=== PATIENT | male | born 1970 | race Caucasian/White ===

== ENCOUNTER 2016-12-08 10:40 | Emergency (ER) | payer OTHER ==
[2016-12-08 10:51] VITALS: RESP 18
--- NOTE | 2016-12-08 11:38 | EDPHY ---
H & P Smoking Status: Never smoked <Charito Regalado - Last Filed: 12/08/16 17:29> <LenoraSybil Vanessa - Last Filed: 12/10/16 17:22> Time Seen by Provider: 12/08/16 11:25 HPI/ROS: HPI: 46-year-old male presents to emergency department with chief concern right 2nd finger injury with a table saw that occurred 2 hours prior to arrival. Up-to-date with tetanus. Reports severe 9/10 pain at distal portion of the right finger. No weakness, numbness, tingling. Reports preserved range of motion. Immunocompetent. Has chronic back pain. Happened while at work-he works for himself. Right-hand dominant Review of Systems: Constitutional: no fever, chills, fatigue Cardiac: No cool, dusky extremity GI: No nausea or vomiting Musculoskeletal: No weakness or decreased range of motion Skin: Laceration distal right 2nd finger Neuro: no numbness, tingling, or weakness. no decreased sensation. 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 No acute distress. Head: Normalocephalic. Atraumatic. EENT: PERRLA. EOMI. Neck: Supple, nontender. Respiratory: Breathing unlabored. CV: Chest nontender, atraumatic. Bilateral radial pulses 2+. Brisk cap refill all extremities. GI: Deferred Neuro: Alert. Oriented x 3. Sensation intact all extremities. Skin: Skin warm, 2 cm laceration extending through the distal portion of the right 2nd finger into the nail bed. Extremities: No discomfort to palpation of the right shoulder, elbow, wrist, full range of motion. Right 2nd finger with full range of motion of the right 1st MCP J, PIPJ, DIPJ to flexion and extension with resistance. (Charito Regalado) Constitutional: Initial Vital Signs Temperature (C) 36.6 C 12/08/16 10:47 Heart Rate 69 12/08/16 10:47 Respiratory Rate 18 12/08/16 10:47 Blood Pressure 113/83 H 12/08/16 10:47 O2 Sat (%) 97 05/18/17 10:47 O2 Delivery Mode Room Air Allergies/Adverse Reactions: No Known Allergies Allergy (Unverified 12/08/16 10:47) Home Medications: Medication Instructions Recorded Cephalexin [Keflex (*)] 500 mg PO QID #20 cap 12/08/16 GABAPENTIN 12/08/16 Hydrocodone/APAP 5/325 [[place] 1 - 2 tab PO Q4H PRN #14 tab 12/08/16 5/325] morphINE 12/08/16 Medical Decision Making <Charito Regalado - Last Filed: 12/08/16 17:29> <Sybil Cooley - Last Filed: 12/10/16 17:22> Procedures: After verbal consent was obtained and risks and benefits explained, a digital block was performed to the right 2nd finger using a total of 4 mL 0.5% Marcaine. Patient tolerated. Anesthesia achieved. (Charito Regalado) Procedure: Laceration repair. The complicated laceration on the distal end of the right index finger was anesthetized using lidocaine by Charito Regalado. The wound was irrigated, draped and explored to its base with a gloved finger. No foreign body palpable. The wound was repaired with 5-0 Ethilon (by me) for the skin and 5-0 Vicryl for the nail bed. The fingernail was partially removed by me. The wound repair was complex. (Sybil Cooley) ED Course/Re-evaluation: 46-year-old male presents to emergency department with a laceration of the right 2nd finger that occurred twice a table Julissa 2 hours prior to arrival. Up- to-date with tetanus. (Charito Regalado) Differential Diagnosis: Laceration, fracture, open fracture, tendon injury (Charito Regalado) - Data Points Medications Given: Discontinued Medications Cephalexin HCl (Keflex) 500 mg PO EDNOW ONE PRN Reason: Protocol Stop: 12/08/16 12:19 Last Admin: 12/08/16 12:39 Dose: 500 mg Gabapentin (Neurontin) 300 mg PO EDNOW ONE Stop: 12/08/16 12:33 Last Admin: 12/08/16 12:39 Dose: 300 mg Morphine Sulfate (Morphine Ir) 30 mg PO ONCE ONE Stop: 12/08/16 12:33 Last Admin: 12/08/16 13:22 Dose: 30 mg Departure <Charito Regalado - Last Filed: 12/08/16 17:29> <Sybil Cooley - Last Filed: 12/10/16 17:22> - Departure Disposition: Home, Routine, Self-Care Clinical Impression: Finger laceration Qualifiers: Encounter type: initial encounter Qualified Code(s): S61.219A - Laceration without foreign body of unspecified finger without damage to nail, initial encounter Fracture, finger, open Qualifiers: Encounter type: initial encounter Finger: index finger Phalanx: distal Fracture alignment: displaced Laterality: right Qualified Code(s): S62.630B - Displaced fracture of distal phalanx of right index finger, initial encounter for open fracture Condition: Good Instructions: Care For Your Stitches (ED), Laceration (ED), Finger Fracture (ED ) Additional Instructions: You have been referred to a hand surgeon below. Please followup with the physician on Monday. Return in 10 days for suture removal. Referrals: Clare Del Rosario MD [Medical Doctor] - As per Instructions (Hand surgeon) Prescriptions: Cephalexin [Keflex (*)] 500 mg PO QID #20 cap Hydrocodone/APAP 5/325 [[place] 5/325] 1 - 2 tab PO Q4H PRN #14 tab PRN Reason: Pain, Moderate <Charito Regalado - Last Filed: 12/08/16 17:29> Report Scribed for: Sybil Cooley Report Scribed by: uZlay Reece Date of Report: 12/08/16 Time of Report: 12:57 <Sybil Cooley - Last Filed: 12/10/16 17:22> Physician Review and Approval Statement: 12/08/16 12:57 Portions of this note were transcribed by a hospital medical assistant. I personally performed the history, physical exam, and medical decision-making; and confirmed the accuracy of the information in the transcribed note. (Sybil Cooley)
[2016-12-08] MEDS ORDERED: CEPHALEXIN 500 MG CAP PO ONE (12:18)
[2016-12-08] MEDS ORDERED: GABAPENTIN 300 MG CAP PO ONE (12:32)
[2016-12-08] MEDS ORDERED: morphINE IR 30 MG TAB PO ONE (12:32)
[2016-12-08 13:24] VITALS: BP 118/76; PULSE 67; TEMP 98.1; O2SAT 96
== END 2016-12-08 13:22 | disposition home or self-care (01) ==
PROC: 0HQQXZZ Repair Finger Nail, External Approach (ICD-10-PCS; principal; 2016-12-08)
DX: S62.630A Displaced fracture of distal phalanx of right index finger, initial encounter for closed fracture (principal); S61.310A Laceration without foreign body of right index finger with damage to nail, initial encounter; W27.0XXA Contact with workbench tool, initial encounter; Y92.69 Other specified industrial and construction area as the place of occurrence of the external cause; Y99.0 Civilian activity done for income or pay; Y93.89 Activity, other specified